=== PATIENT | female | born 1995 | race Caucasian/White ===

== ENCOUNTER 2017-01-16 17:37 | Emergency (ER) | payer OTHER ==
--- NOTE | 2017-01-16 17:48 | EDPHY ---
H & P Stated Complaint: opth appt showed optical nerve inflammation/weeks of stumbling /jumbling wor - Personal History LMP (Females 10-55): IUD In Place Current Tetanus/Diphtheria Vaccine: Yes - Medical/Surgical History Hx Asthma: No Hx Chronic Respiratory Disease: No Hx Diabetes: No Hx Cardiac Disease: No Hx Renal Disease: No Hx Cirrhosis: No Hx Alcoholism: No Hx HIV/AIDS: No Hx Splenectomy or Spleen Trauma: No Other PMH: denies - Social History Smoking Status: Never smoked Time Seen by Provider: 01/16/17 17:47 HPI/ROS: CHIEF COMPLAINT: Inflamed optic nerve, stumbling HISTORY OF PRESENT ILLNESS: The patient is a 21 y/o female arriving at the referral of her process designer due to an inflamed optic nerve. For the past few months she has experienced stumbling and general clumsiness; this is not specific to one side of her body. Over the last 4-5 weeks she describes difficulty "getting my words to come out right and jumbling through sentences." She has occasional toe numbness, but denies weakness anywhere. She denies any headaches worse than baseline. She was evaluated for Lasik eye surgery this morning and while her eyes were dilated an inflamed optic nerve was seen and she was referred to an process designer. She was seen in the Ophthalmology Clinic located on the [facility]. After being examined she was referred to the emergency department for head imaging--she is not certain of the details concerning the exam that was performed. She denies headache, eye pain, vision changes or decrease, hearing difficulty, or dysphagia. REVIEW OF SYSTEMS: A ten point review of systems was performed and is negative with the exception of the items mentioned in the HPI. (Tammy Kc) - Physical Exam Exam: General Appearance: Alert. Vital signs reviewed. Eyes: Pupils equal and round, 5 mm, no conjunctival injection, no discharge. Anicteric. No pain with eye movements. ENT, Mouth: Mucous membranes are moist, no oropharyngeal erythema or edema. Neck: No lymphadenopathy, supple. Respiratory: Lungs are clear to auscultation; no wheezes, rales, or rhonchi. Cardiovascular: Regular rate and rhythm; no murmur, rub, or gallop. Gastrointestinal: Abdomen is soft and nontender, no masses or organomegaly, bowel sounds normal. Skin: Warm and dry, no rashes on exposed skin, normal color. Extremities: No lower extremity edema, no calf tenderness or swelling. Neurological: Alert and oriented. Moving all four extremities easily and equally. Cranial nerves II through XII are examined and are intact. Visual acuity was not tested, she has been seen twice today by I specialists. Her eyes have recently been dilated and I am unable to assess for an after parent pupillary defect. Strength is 5 over 5 bilaterally with testing of all major motor groups. Sensation is intact to light touch over all 4 extremities. Deep tendon reflexes are 2+ in the biceps and knees bilaterally. Gait is normal. [id number] is performed accurately. Psychiatric: Normal affect. (Tammy Kc) Constitutional: Initial Vital Signs Temperature (C) 37.1 C 01/16/17 17:40 Heart Rate 98 01/16/17 17:40 Respiratory Rate 18 01/16/17 17:40 Blood Pressure 128/95 H 01/16/17 17:40 O2 Sat (%) 94 01/16/17 17:40 O2 Delivery Mode Room Air Allergies/Adverse Reactions: diclofenac [From Voltaren] Allergy (Verified 01/16/17 17:40) Home Medications: Medication Instructions Recorded MIRENA 01/16/17 Medical Decision Making - Diagnostics Imaging: Discussed imaging studies w/ traffic division commanding officer Radiologist ED Course/Re-evaluation: I received sign-out on this patient at approximately 11:[address] Kc. MRI was performed which showed for demyelinating lesions of the brain. I discussed these findings with the patient. Her symptoms have been present for several weeks now. I consulted with [facility], Dr. Wilson and we discussed the case and her MRI results. He recommends Solu-Medrol 1 g for 3 days which can be done as an inpatient or outpatient. The patient does not have a current outpatient neurologist so I recommended that she stay in the hospital to ensure treatment. She was reluctant to stay as she is dog sitting and was concerned about the dog's. I talked to her mother on the phone and explained in detail her MRI results and the implications of a presumed diagnosis of multiple sclerosis. I explained the risks and benefits of hospital admission. The patient's mother has been working on referral to outpatient neurology given her daughter's symptoms. She feels she will be able to get quick follow-up with Neurology. She would like to choose her own neurologist and possibly go to [facility] for further care. Given that the patient's symptoms have been present for the past few months, I feel it is reasonable to have treatment on an urgent rather than an emergent basis for presumed multiple sclerosis. I have explained the benefits of steroids, however they both believe waiting a few days will not worsen her condition. I have talked about return precautions and they can easily return to the hospital if she would like to start steroids or be admitted to the hospital for further evaluation. I plan to discharge her and will give her information for our neurologist, however I suspect her mother will seek out neurology referral independently. I have given the patient a copy of her MRI report and images. I have also given her a dose of Ativan because she is feeling very anxious and would like to get rest tonight. (Virginia Pack) Normal neurologic exam. An MRI with and without contrast with thin cuts through the optic nerve postcontrast ordered to evaluate for optic neuritis, MS , other abnormalities that might explain her neurologic symptoms. 2013: Consulted with Dr. Horowitz, ophthalmology. The patient was seen in his office earlier today by Dr. Hollingsworth. They took photos of her optic nerve and did not see evidence of optic nerve inflammation. They referred her to the ED due to her other neurologic complaints. He is happy to see her in his office tomorrow if needed--he can see her at 9:00 a.m. 8:55 p.m.. Patient is resting comfortably. No new complaints or symptoms. MRI pending. Her care will be transferred to Dr. Brown at 9:00 p.m.. Assuming that the MRI scan is normal or does not show anything that needs immediate attention, she will be discharged with referral to Neurology. (Tammy Kc) Differential Diagnosis: I considered a differential diagnosis that includes but is not limited to multiple sclerosis, CVA, malignancy, headache phenomenon. (Tammy Kc) - Data Points Medications Given: Discontinued Medications Methylprednisolone Sodium (Succinate 1,000 mg/ Dextrose) 100 mls @ 100 mls/hr IV EDNOW ONE Stop: 01/17/17 02:22 Last Admin: 01/17/17 01:57 Dose: Not Given Lorazepam (Ativan 1 Mg Prepack#4) 1 btl TAKEHOME EDNOW ONE Stop: 01/17/17 02:03 Last Admin: 01/17/17 02:10 Dose: 1 btl Departure - Departure Disposition: Home, Routine, Self-Care Clinical Impression: Discoordination, Balance problem, Demyelinating changes in brain Condition: Good Instructions: Additional Information, Lorazepam (By mouth) Additional Instructions: Follow up with Dr. Easton, neurologist, next week. Return to the ED for vision changes, weakness, or other worsening of condition. Referrals: MERY BARAJAS [Primary Care Provider] - As per Instructions Joel Easton DO [Medical Doctor] - As per Instructions Report Scribed for: Tammy Kc Report Scribed by: Helen Sommers Date of Report: 01/16/17 Time of Report: 17:50 Physician Review and Approval Statement: 01/16/17 17:48 Portions of this note were transcribed by the forensic medical examiner. I, Dr. Tammy Kc, personally performed the history, physical exam, and medical decision- making; and confirmed the accuracy of the information in the transcribed note. ( Tammy Kc)
[2017-01-16 18:33] VITALS: TEMP 98.2
[2017-01-16] MEDS ORDERED: GADOBUTROL 10 ML VIAL IVP ONE (22:28)
[2017-01-17] MEDS ORDERED: methylPREDNISolone SOD SUCC 1,000 MG in D5W 100 ML IV ONE (01:23)
[2017-01-17] MEDS ORDERED: LORAZEPAM 1 MG PREPACK#4 BTL TAKEHOME ONE (02:02)
[2017-01-17 02:49] VITALS: BP 144/72; PULSE 78; RESP 16; O2SAT 98
== END 2017-01-17 02:49 | disposition home or self-care (01) ==
DX: G37.9 Demyelinating disease of central nervous system, unspecified (principal)
CPT/HCPCS: A9585; J2930

== ENCOUNTER → 2017-01-27 | Outpatient (CLI) | payer OTHER ==
[~2017-01-27] MED LIST: LIDOCAINE 1% 300 MG/30 ML SDV ONE
[2017-01-27 11:51] LABS: PROTEIN, CSF 19 mg/dL (12-60)
[2017-01-27 11:59] LABS: CSF COLOR COLORLESS (COLORLESS)
[2017-01-27 12:00] LABS: CSF APPEARANCE CLEAR (CLEAR); CSF SUPERNATANT COLORLESS (COLORLESS)
[2017-01-27 12:01] LABS: WBC, CSF 3 /mm3 (0-5)
== END ==
LOC: FIMAGING 08:59
PROVIDERS: ATTEND Physician Assistant Medical
PROC: 009U4ZX Drainage of Spinal Canal, Percutaneous Endoscopic Approach, Diagnostic (ICD-10-PCS; principal; 2017-01-27)
DX: R90.89 Other abnormal findings on diagnostic imaging of central nervous system (principal)